=== PATIENT | male | born 1985 | race Two or more races ===

== ENCOUNTER 2024-12-15 13:22 | Emergency (ER) | payer MEDICAID, SELFPAY ==
[2024-12-15 13:22] VITALS: BMI 35.2
[2024-12-15 13:30] VITALS: BP 125/77; PULSE 91; RESP 18; TEMP 37.1; O2SAT 95
--- NOTE | 2024-12-15 13:35 | XR_ITS ---
Examination: PA lateral chest 2 views TECHNIQUE: Upright PA lateral chest 2 views Date and time: December 15, 2024 1456 hours INDICATIONS: Shortness of breath beginning 3 weeks ago. FINDINGS: Normal heart size. Lungs are clear. Osseous structures are intact. IMPRESSION: No active disease
--- NOTE | 2024-12-15 13:35 | EDNOTE_ITS ---
ED SOB =RME/HPI General Chief Complaint: Shortness of Breath/Dyspnea Stated Complaint: SOB WITH BLURRY VISION X2 WEEKS Time Seen by Provider: 12/15/24 13:51 Source: patient Arrival date/time: 12/15/24 13:22 38-year-old male with no known medical history presents to the emergency room with a chief complaint of shortness of breath blurry vision x 2 weeks Mode of arrival: ambulatory Limitations: no limitations Related Data Previous Rx's ?Medication ?Instructions ?Recorded ibuprofen 600 mg tablet 1 tab PO Q8HR PRN pain #30 t abs 10/29/16 ibuprofen 800 mg tablet (IBU) 800 mg PO Q8H #20 tabs 0 12/06/23 Allergies Allergy/AdvReac Type Severity Reaction Status Date / Time No Known Allergies Allergy Verified 12/15/24 13:25 Review of Systems Review of Systems Systems Reviewed: All systems reviewed, normal except as documented Constitutional Constitutional: Reports system reviewed and no additional complaints, except as documented, Denies fatigue, Denies fever(s), Denies headache(s) and Denies weakness Eyes Eyes: Reports system reviewed and no additional complaints, except as documented, Denies blurry vision and Denies change in vision ENT Ears, Nose, Mouth, and Throat: Reports system reviewed and no additional complaints, except as documented, Denies otalgia, Denies headache(s), Denies nasal congestion, Denies throat swelling and Denies vertigo Cardiovascular Cardiovascular: Reports system reviewed and no additional complaints, except as documented, Denies chest pain, Denies dyspnea and Denies dyspnea on exertion Respiratory Respiratory: Reports system reviewed and no additional complaints, except as documented, Reports change in phlegm color, Reports chest congestion, Reports cough, Denies dyspnea, Denies dyspnea on exertion and Denies wheezing Gastrointestinal Gastrointestinal: Reports system reviewed and no additional complaints, except as documented, Denies abdominal pain, Denies cramping, Denies nausea and Denies vomiting Genitourinary Genitourinary: Reports system reviewed and no additional complaints, except as documented, Denies dysuria and Denies hematuria Musculoskeletal Musculoskeletal: Reports system reviewed and no additional complaints, except as documented and Denies back pain Integumentary/Breasts Skin/Breast: Reports system reviewed and no additional complaints, except as documented and Denies wounds Neurologic Neurologic: Reports system reviewed and no additional complaints, except as documented, Denies confusion, Denies headache(s), Denies lack of coordination, Denies vertigo and Denies weakness Psychiatric Psychiatric: Reports system reviewed and no additional complaints, except as documented, Denies anxiety, Denies confusion, Denies depression, Denies paranoi a, Denies suicidal ideation and Denies tactile hallucinations Endocrine Endocrine: Reports system reviewed and no additional complaints, except as docu mented and Denies fatigue Hematologic/Lymphatic Hematologic/Lymphatic: Reports system reviewed and no additional complaints, except as documented and Denies lymphadenopathy Allergic/Immunologic Allergic/Immunologic: Reports system reviewed and no additional complaints, except as documented, Denies throat swelling, Denies urticaria and Denies wheezing Past Medical History Social History SMOKING STATUS: Never smoker ED Exam General Limitations: Present no limitations General appearance: Present alert and in no apparent distress Head Head exam: Present atraumatic Eye Eye exam: Present normal appearance, PERRL and EOMI ENT ENT exam: Present normal exam, normal oropharynx and mucous membranes moist Neck Neck exam: Present normal inspection, full ROM and trachea midline Chest Chest inspection: Present normal inspection and symmetric chest wall rise Respiratory Respiratory exam: Present normal lung sounds bilaterally; Absent respiratory distress, wheezes, stridor, accessory muscle use or prolonged expiratory phase Cardiovascular Cardiovascular exam: Present regular rate, normal rhythm and normal heart sounds Abdominal Exam Abdominal exam: Present soft and normal bowel sounds Extremities Exam Extremities exam: Present normal inspection and full ROM Back Exam Back exam: Present normal inspection and full ROM Neurological Exam Neurological exam: Present alert, oriented X3 and CN II-XII intact Psychiatric Psychiatric exam: Present normal affect and normal mood Skin Skin exam: Present warm, dry, intact and normal color Course Quality Measures none Orders Category Date Time Status Bedside COVID-19 Antigen Test NOW Care 12/15/24 13:35 Completed Bedside Influenza A&B Antigen Test NOW Care 12/15/24 13:35 Completed XR chest 2V Stat Exams 12/15/24 13:35 Completed CBC Stat Lab 12/15/24 14:12 Completed CMP [Comprehensive Metabolic Panel] Stat Lab 12/15/24 14:12 Completed Vital Signs Vital signs: Vital Signs Temperature 98.7 F 12/15/24 13:30 Pulse Rate 91 12/15/24 13:30 Respiratory Rate 18 12/15/24 13:30 Blood Pressure 125/77 12/15/24 13:30 Pulse Oximetry (%) 95 12/15/24 13:30 Oxygen Delivery Method Room Air 12/15/24 13:30 O2 saturation 95% within normal limits Shortness of Breath / Dyspnea MDM Narrative MDM Narrative:: 38-year-old male with no known medical history presents to the emergency room with a chief complaint of shortness of breath blurry vision x 2 weeks Patient is hemodynamically stable and in no apparent distress Physical examination shows clear bilateral lung sounds there is no wheezing there is no abnormal breath sounds. The patient has blurry vision x 2 weeks. Patient denies any spots in the vision pupils are PERRLA EOMs are intact patient denies any loss of peripheral vision. He Chest x-ray was completed and was negative for any pneumonic infiltrates. CBC CMP were within normal limits Patient was discharged and educated to follow-up with primary care provider in the next 24 to 48 hours and return to the emergency room for any evidence of worsening signs or symptoms Patient data External records reviewed:: [facility] previous records Clinical information provided by:: patient Social determinants that could affect healthcare access:: none Patient has the following chronic illnesses:: No chronic illness How is presenting disease/condition affected by chronic disease/condition?: no chronic disease Evaluation data The following diagnostics were reviewed and interpreted by me:: lab results and radiology exam(s) Lab and/or radiology exams considered but not ordered:: Labs and radiology exams considered and ordered Interpretation Summary: Chest x-ray-no pneumonic infiltrates Medications / Prescriptions Medications or Prescriptions considered but not ordered:: No medication given Medication administrations:: No medication given Consultations Consultation(s) initiated? (list below): No Diagnosis Shortness of Breath Differential Diagnosis: congestive heart failure, community acquired pneumonia, asthma with exacerbation and other (Upper respiratory infection) Most likely diagnosis given after review of the tests above:: Upper respiratory infection Admission Indicated Admission indicated?: not indicated Admission Request Was there a request for admission?: No Disposition Plan Disposition Plan: Discharge Discharge Attestation Discharge Attestation: The patient and all family members were given an opportunity to ask questions and understood the discharge instructions. Discharge instructions specifically effects, indications for sooner follow up or return to the emergency department, and the expected course of current diagnosis. Patient condition: Stable Discharge Plan Plan Patient Disposition: HOME (Self Care) Discharge Disposition comment: Stable Prescriptions/Referrals Prescriptions/Med Rec: No Action ibuprofen 600 MG tablet 1 tab PO Q8HR PRN (Reason: pain) Qty: 30 0RF ibuprofen [IBU] 800 mg tablet 800 mg PO Q8H Qty: 20 0RF Referrals: Demetrio Muniz PA-C [Primary Care Provider] - In 1 week Problem List Clinical Impression: Upper respiratory infection, viral Patient/Caregiver Discharge Instructions Education Materials: ED URI, Viral, No Abx (Adult) Additional Instructions: Por favor, consulte con tran m?dico de cabecera en las pr?ximas 24 a 48 horas. Tran radiograf?a de t?rax fue negativa para neumon?a. Tran an?lisis de james fue negativo para cualquier hallazgo claudia. Ante cualquier evidencia de empeoramiento de los signos o s?ntomas, acuda a urgencias de inmediato. Print Language: Mauritanian Stand Alone Forms: Naina Award Info., Patient Portal Info Letter PA/DANDY Supervising Physician PA/DANDY Supervising Physician: Dr Garcia
[2024-12-15 14:23] LABS: Basophils % (Auto) 0 % (0-2.5); Eosinophils # (Auto) 0.1 Thou/mm3 (0.0-0.5); Eosinophils % (Auto) 1 % (0-10); Hematocrit 47.8 % (41.0-53.0); Hemoglobin 17.2 g/dL (13.5-16.0); Immature Granulocytes % (Auto) 1 % (0-0); Immature Granulocytes Auto 0.05 Thou/mm3 (0.00-0.00); Lymphocytes # (Auto) 2.5 Thou/mm3 (1.0-4.8); Lymphocytes % (Auto) 27 % (10-50); Mean Corpuscular Hemoglobin 30.6 pg (25.0-35.0); Mean Corpuscular Volume 85 fL (80-100); Monocytes # (Auto) 0.7 Thou/mm3 (0.0-0.8); Monocytes % (Auto) 7 % (0-12); Neutrophils # (Auto) 5.9 Thou/mm3 (1.8-7.7); Neutrophils % (Auto) 64 % (37-80); Nucleated Red Blood Cell % 0 /100 WBC (0); Platelet Count 279 Thou/mm3 (140-440); RDW Standard Deviation 37.7 fL (35.1-43.9); Red Blood Count 5.62 Miln/mm3 (4.50-5.90); White Blood Count 9.2 Thou/mm3 (3.8-10.6)
[2024-12-15 14:42] LABS: Alanine Aminotransferase 54 U/L (10-49); Albumin, Serum 4.7 gm/dL (3.5-5.0); Albumin/Globulin Ratio 1.9 (1.2-2.2); Alkaline Phosphatase 78 U/L (46-116); Anion Gap 11 (7-16); Aspartate Amino Transferase 37 U/L (0-34); BUN/Creatinine Ratio 11 Ratio (12-20); Bilirubin,Total 0.8 mg/dL (0.3-1.2); Blood Urea Nitrogen 10 mg/dL (9-23); Calcium 9.9 mg/dL (8.3-10.6); Calcium (Corrected) 9.9 mg/dL (8.5-10.1); Carbon Dioxide 24.2 mMol/L (20.0-31.0); Chloride 102 mMol/L (98-107); Creatinine (Component) 0.9 mg/dL (0.6-1.3); Estimated Creatinine Clearance 98.6 mL/min (>60); Globulin 2.5 gm/dL (2.3-3.5); Glucose 111 mg/dL (74-106); Osmolality,Calculated 273 (275-295); Potassium 3.8 mMol/L (3.4-5.1); Sodium 137 mMol/L (136-145); Total Protein 7.2 gm/dL (5.7-8.2); eGFR > 60 See Note
== END 2024-12-15 15:47 | disposition home or self-care (01) ==
PROVIDERS: Nurse Practitioner Family; Emergency Provider Emergency Medicine; PCP Family Medicine
DX: J06.9 Acute upper respiratory infection, unspecified (principal)
CPT/HCPCS: 36415; 71046; 80053; 85025; 87400; 87811; 99283